=== PATIENT | male | born 1990 | race Caucasian/White ===

== ENCOUNTER 2022-04-20 01:13 | Emergency (ER) | payer OTHER ==
[2022-04-20 02:11] LABS: HEMOGLOBIN 14.3 gm/dl (14.0-17.5); RED BLOOD COUNT 4.51 M/UL (4.20-5.50); WHITE BLOOD COUNT 9.1 K/UL (4.5-11.0)
[2022-04-20 02:24] LABS: BUN/CREATININE RATIO 17 (0-10)
== END 2022-04-20 04:40 | disposition home or self-care (01) ==
LOC: ER1 01:13
PROVIDERS: Emergency Medicine
DX: S20.222A Contusion of left back wall of thorax, initial encounter (principal); S30.810A Abrasion of lower back and pelvis, initial encounter; W20.8XXA Other cause of strike by thrown, projected or falling object, initial encounter
CPT/HCPCS: 71260; 72128; 72131; 80053; 85025; 96374; 96375; 99284; J1885; J2270; Q9967